=== PATIENT | female | born 1950 | race African-American/Black ===

== ENCOUNTER 2021-01-27 08:00 | Outpatient (CLI) | payer OTHER | END 2021-01-27 08:30 | disposition home or self-care (01) | LOC: PPH VACUNA 08:00 | PROVIDERS: ATTEND Emergency Medicine Pediatric Emergency Medicine | DX: Z23 Encounter for immunization (principal) ==

== ENCOUNTER 2024-09-04 11:22 | Outpatient (CLI) | payer OTHER | END 2024-09-04 11:23 | disposition home or self-care (01) | LOC: NUCLEAR 11:22 | PROVIDERS: ATTEND Thoracic Surgery (Cardiothoracic Vascular Surgery) | DX: I87.2 Venous insufficiency (chronic) (peripheral) (principal) ==

== ENCOUNTER → 2024-09-17 | Outpatient (CLI) | payer OTHER | END | disposition home or self-care (01) | LOC: NUCLEAR 09-03 08:00 | PROVIDERS: ATTEND Thoracic Surgery (Cardiothoracic Vascular Surgery) | DX: I73.9 Peripheral vascular disease, unspecified (principal); R60.9 Edema, unspecified ==